=== PATIENT | male | born 2005 | race African-American/Black ===

== ENCOUNTER 2024-01-03 05:47 | Emergency (ER) | payer OTHER, SELFPAY ==
--- NOTE | 2024-01-03 | ECG_ITS ---
Test Reason : DYSOENA Blood Pressure : / mmHG Vent. Rate : 098 BPM Atrial Rate : 098 BPM P-R Int : 152 ms QRS Dur : 094 ms QT Int : 340 ms P-R-T Axes : 083 086 043 degrees QTc Int : 434 ms Normal sinus rhythm Normal ECG No previous ECGs available Referred By: Generic ED Physician Electronically Signed By:LUCITA SAM MD
--- NOTE | ~2024-01-03 | XR_ITS ---
EXAMINATION: XR CHEST CLINICAL INFORMATION: Shortness of breath. COMPARISON: None available. TECHNIQUE: 2 views of the chest were obtained. FINDINGS: No significant abnormality is noted involving the heart, lungs, mediastinum, bony thorax or soft tissues. XR/XR chest 2V IMPRESSION: Unremarkable examination.
[2024-01-03 05:55] VITALS: BP 135/77; PULSE 105; RESP 22; TEMP 36.6; O2SAT 96; BMI 51.8
[2024-01-03 06:20] VITALS: BP 138/83; PULSE 102; RESP 18; TEMP 36.7; O2SAT 95
--- NOTE | 2024-01-03 06:37 | MHC.EDTECH ---
THIS PCT JUST ASSUMED CARE OF PATIENT ,VITALS TAKEN ,EKG DONE AND WAS READ BY PROVIDER ,BLOOD DRAWN AND SENT TO LAB ,PATIENT WAS HOOKED UP TO CCNP ,CALL [facility] WITHIN PT REACH .
[2024-01-03 06:40] LABS: Basophils Absolute Auto 0.1 X10*3/uL (0.0-0.2); Basophils Percent Auto 0.8 % (0-2); Eosinophils Absolute Auto 0.3 X10*3/uL (0.0-0.4); Eosinophils Percent Auto 3.5 % (0-4); Hemoglobin 14.7 g/dl (14.0-18.0); Imm Gran Abs Auto 0.03 X10*3/uL (0.00-0.03); Imm Gran Pct Auto 0.4 % (0.0-0.4); Lymphocytes Percent Auto 26.5 % (20-40); MANUAL DIFF FLAG NO; Mean Corpuscular HGB Conc 32.7 g/dl (31.0-36.0); Mean Corpuscular Hemoglobin 26.5 pg (27.0-33.0); Mean Corpuscular Volume 81.1 fL (80.0-98.0); Mean Platelet Volume 8.9 fL (9.4-12.4); Monocytes Absolute Auto 0.6 X10*3/uL (0.1-1.2); Monocytes Percent Auto 8.6 % (2-11); Neutrophils Absolute Auto 4.5 x10*3/uL (2.0-8.3); Neutrophils Percent Auto 60.2 % (45-73); Platelet Count 291 X10*3/uL (160-400); Red Blood Count 5.55 X10*6/uL (4.60-5.80); Red Cell Distribution Width 14.9 % (11.0-16.0); White Blood Count 7.4 X10*3/uL (4.8-10.8)
[2024-01-03 06:54] LABS: Alanine Aminotransferase 37 U/L (0-40); Albumin Level 4.4 g/dL (3.5-5.0); Alkaline Phosphatase 80 U/L (39-117); Anion Gap 14 (12-20); Aspartate Amino Transferase 26 U/L (5-37); Bilirubin Total 0.4 mg/dL (0.0-1.0); Blood Urea Nitrogen 13 mg/dL (9-16); Calcium 9.3 mg/dL (8.4-10.2); Carbon Dioxide 25 mmol/L (22-29); Chloride 107 mmol/L (96-108); Creatinine Clr Calc Pharmacy 282.2; Estimated Glomerular Filt Rate > 60; Glucose Random 104 mg/dL (60-115); Sodium 142 mmol/L (135-145); Total Protein 7.8 g/dL (6.5-8.0)
--- NOTE | 2024-01-03 07:18 | ED.SOB ---
HPI - SOB/Dyspnea General Chief Complaint: Dyspnea Stated Complaint: diff breathing Time Seen by Provider: 01/03/24 07:01 Source: patient and family (Mother) Mode of arrival: ambulatory History of Present Illness HPI Narrative: 18-year-old male presentation for shortness of breath since last night, denies any fever, chills, sore throat or ear pain. Patient is noted to prediabetes and is currently on metformin otherwise no reported history of asthma. Related Data Allergies Allergy/AdvReac Type Severity Reaction Status Date / Time shrimp Allergy Anaphylaxis Verified 01/03/24 06:00 Review of Systems Review of Systems: Pertinent positives and negatives as stated on HPI [facility] Past Medical History Source: nursing notes reviewed Social History Social History Smoked in Last 30 Days: No Use of substances other than those prescribed or required for medical reasons: No Advance Directives: No Advance Directives Information Provided: No Physical Exam Vital Signs: Vital Signs: Last Vital Signs Temp 98.0 F 01/03/24 06:20 Pulse 67 01/03/24 08:00 Resp 16 01/03/24 08:00 BP 138/83 01/03/24 06:20 Pulse Ox 95 01/03/24 06:20 O2 Del Method Room Air 01/03/24 06:20 BMI result Body Mass Index 51.8 VITAL SIGNS: Reviewed. GENERAL: Elevated BMI, Well developed, well nourished, in no acute distress. HEAD: Normocephalic/atraumatic EYES: PERRLA, EOMI EARS: Ext canals without abnormality, TMs non-bulging and non-erythematous NOSE: Nares patent bilateral OROPHARYNX: no oral lesions noted, posterior pharynx clear and non-erythematous without noted tonsillar enlargement/erythema/exudates NECK: Supple, no adenopathy LUNGS: Good inspiratory effort with expiratory wheeze throughout, no obvious tachypnea. SpO2<95> CARDIOVASCULAR: Regular rate and rhythm without noted murmurs ABDOMEN: Soft, non-tender, non-distended with bowel sounds. MUSCULOSKELETAL: No tenderness, deformities, or effusions noted on gross inspection. EXTREMITIES: No cyanosis, clubbing or edema. SKIN: Inspection of the skin reveals no rashes NEUROLOGIC: Alert and oriented x 4. Strength and sensation to light touch were grossly intact x 4. Medications Administered Discontinued Medications Generic Name Dose Route Start Last Admin Trade Name Freq PRN Reason Stop Dose Admin Albuterol/Ipratropium 3 ml 01/03/24 07:12 01/03/24 07:57 Albuterol/Iprat 2.5/0.5mg 3 Ml Ampul.Neb INHALE 01/03/24 07:13 3 ml ONCE ONE Administration Medical Decision Making Medical Decision Making [facility] Narrative: 18-year-old male with history and clinical presentation, DDX: No evidence to suggest anaphylaxis or angioedema, suspect seasonal allergies leading to reactive airway in combination with body habitus. Patient is oxygenating well on room air without tachypnea. Reviewed all investigations and hematologic indices are negative for leukocytosis/left shift/anemia/thrombocytopenia. Chemistries disease are negative for YVETTE/electrolyte or liver enzyme derangements. Viral testing is negative for COVID-19/influenza and chest x-ray does not demonstrate infiltration or venous congestion. Patient received 3 male DuoNeb in states feeling much better, on reauscultation of lungs reduction expiratory wheeze, recommendations to the patient and mother are that he should start seasonal allergy medication with Claritin and Flonase. Differential Diagnosis Differential Diagnoses: The differential diagnosis associated with the presentation includes Please see the discussion above Admission/Observation Consideration of admission/observation: Escalation of care including admission/observation considered Please see the discussion above Lab Data [facility] Lab Attestation statement: I reviewed the patient's lab results. Please see the discussion above 01/03/24 06:36 01/03/24 06:36 Labs: Lab Results 01/03/24 01/03/24 Range/Units 06:36 07:19 WBC 7.4 (4.8-10.8) X10*3/uL RBC 5.55 (4.60-5.80) X10*6/uL Hgb 14.7 (14.0-18.0) g/dl Hct 45.0 (42.0-52.0) % MCV 81.1 (80.0-98.0) fL MCH 26.5 L (27.0-33.0) pg MCHC 32.7 (31.0-36.0) g/dl RDW 14.9 (11.0-16.0) % Plt Count 291 (160-400) X10*3/uL MPV 8.9 L (9.4-12.4) fL Immature Gran % (Auto) 0.4 (0.0-0.4) % Neut % (Auto) 60.2 (45-73) % Lymph % (Auto) 26.5 (20-40) % [place] % (Auto) 8.6 (2-11) % Eos % (Auto) 3.5 (0-4) % Baso % (Auto) 0.8 (0-2) % Lymph # (Auto) 2.0 (1.2-4.9) X10*3/uL [place] # (Auto) 0.6 (0.1-1.2) X10*3/uL Eos # (Auto) 0.3 (0.0-0.4) X10*3/uL Baso # (Auto) 0.1 (0.0-0.2) X10*3/uL Abs Immat Gran (auto) 0.03 (0.00-0.03) X10*3/uL Absolute Neuts (auto) 4.5 (2.0-8.3) x10*3/uL Absolute Nucleated RBC 0.000 (0.0-0.012) X10*3/uL Nucleated RBC % (auto) 0.0 (0.0-0.2) /100WBC Sodium 142 (135-145) mmol/L Potassium 4.0 (3.3-5.1) mmol/L Chloride 107 (96-108) mmol/L Carbon Dioxide 25 (22-29) mmol/L Anion Gap 14 (12-20) BUN 13 (9-16) mg/dL Creatinine 0.79 (0.5-1.4) mg/dL Estim Creat Clear Calc 282.2 Estimated GFR > 60 Random Glucose 104 (60-115) mg/dL Calcium 9.3 (8.4-10.2) mg/dL Total Bilirubin 0.4 (0.0-1.0) mg/dL AST 26 (5-37) U/L ALT 37 (0-40) U/L Alkaline Phosphatase 80 (39-117) U/L Total Protein 7.8 (6.5-8.0) g/dL Albumin 4.4 (3.5-5.0) g/dL COVID-19 (BRANT) Negative (Negative) COVID-19 Clin Com See Note Influenza Type A (ADOLFO) Negative (Negative) Influenza Type B (ADOLFO) Negative (Negative) Influenza A & B Note See Note Independent Interpretation I performed an independent interpretation of an: EKG Interpretation: Normal sinus rhythm, HR-98, no STEMI, MT/QRS/QTC is within normal limits and there is no EKG for comparison. Radiology Impression Discussion of test interpretation with radiology: I have reviewed the radiologist's reading. Radiologist Impression: Please see the discussion above Critical Care Time Critical Care Time Critical Care Time: Yes Total Critical Care Time: 30 Attestation: I personally attest to this time spent taking care of the patient. Discharge Plan Discharge Clinical Impression: Seasonal allergic reaction, Reactive airway disease Instructions: Postnasal Drip (DC), How to Use Nasal Anabel (ED), Allergies (ED), Fluticasone (Into the nose), Loratadine (By mouth) Additional Instructions: Recommend starting [id number] loratadine and fluticasone daily, brand names are Claritin and Flonase. Follow-up with primary care doctor. Print Language: Slovenian
[2024-01-03 07:43] LABS: COVID-19 Test Negative (Negative); IDNOW Serial# 08D9AD1C
[2024-01-03 07:44] LABS: IDNOW Serial# 152EDE1D; Influenza A Negative (Negative); Influenza B2 Negative (Negative)
[2024-01-03] MEDS: Albuterol/Iprat 2.5/0.5MG 3 ML AMPUL.NEB INHALE (07:57)
[2024-01-03 08:00] VITALS: PULSE 67; RESP 16; O2SAT 97
[2024-01-03 08:45] VITALS: BP 138/83; PULSE 67; RESP 18; TEMP 36.6; O2SAT 96
== END 2024-01-03 08:46 | disposition home or self-care (01) ==
PROVIDERS: Emergency Provider Student in an Organized Health Care Education/Training Program
DX: J30.2 Other seasonal allergic rhinitis (principal); J45.909 Unspecified asthma, uncomplicated; R06.02 Shortness of breath; E11.9 Type 2 diabetes mellitus without complications; Z79.84 Long term (current) use of oral hypoglycemic drugs; Z11.52 Encounter for screening for COVID-19
CPT/HCPCS: 36415; 71046; 80053; 85025; 87502; 87635; 93005; 94640; 99284; 99285

== ENCOUNTER → 2024-01-03 06:24 | Outpatient (BNV) | payer OTHER, SELFPAY | PROVIDERS: Emergency Provider Student in an Organized Health Care Education/Training Program; Visit Provider Internal Medicine Cardiovascular Disease | DX: R06.00 Dyspnea, unspecified (principal) | CPT/HCPCS: 93010 ==